=== PATIENT | female | born 1965 | race Caucasian/White ===

== ENCOUNTER 2024-11-27 09:51 | Outpatient (AMB) | payer BC, SELFPAY ==
--- NOTE | 2024-11-27 09:47 | A.OFFPC_ITS ---
Vital Signs 11/27/24 10:01 11/27/24 10:16 Height 5 ft 7.72 in Weight 253 lb BMI 38.8 BP 134/94 H 132/92 H Blood Pressure Location Lt brachial Lt brachial Position Sitting Sitting Respiration 14 Pulse 70 Pulse Source Pulse Oximeter Pulse Oximetry (%) 98 Oxygen Delivery Method Room Air Intake Visit Reasons: Est care Intake Note: New patient visit. Is supposed to be on Atorvastatin and Lisinopril, has been out for 6 months. [employer] Supervisor Required: No Allergies No Known Allergies Allergy (Verified 11/27/24 09:55) Tobacco use date assessed: 11/27/24 Dental Screening Dental Screen Date: 11/27/24 Did you have a dental visit in the last 12 months?: Yes Did you have a dental problem in the last 6 months where you did not have access to dental care?: No Was dental information given to patient?: Patient has dentist HPI HPI Comments History of Present Illness Details 59 year old female with a past medical h istory of hypertension, hyperlipidemia presenting to [facility]. CV: Was on atorvastatin and lisinopril but ran out. She has been monitoring her blood pressure at home. Readings 120s-130/70s-90. Denies chest pain, shortness of breath. She is frustated by inability to lose weight. She would consider GLP if covered. Mammo ordered ROS CONSTITUTIONAL: Denies weight loss, fever and chills. HEENT: Denies changes in vision and hearing. RESPIRATORY: Denies SOB and cough. CV: Denies palpitations and CP GI: Denies abdominal pain, nausea, vomiting and diarrhea. : Denies dysuria and urinary frequency. MSK: Denies new myalgia and joint pain. SKIN: Denies rash and pruritus. NEUROLOGICAL: Denies headache PSYCHIATRIC: Denies recent changes in mood. PHYSICAL EXAM: GENERAL: Alert and oriented x 3. NAD EYES: EOMI. Anicteric. HENT: Moist mucous membranes. No scleral icterus. No cervical lymphadenopathy. LUNGS: Clear to auscultation bilaterally. CARDIOVASCULAR: Regular rate and rhythm. No murmur. No JVD. ABDOMEN: Soft, non-tender +bs EXTREMITIES: No edema. Non-tender. SKIN: No rashes or lesions. Warm. NEUROLOGIC: No focal neurological deficits. CN II-XII grossly intact PSYCHIATRIC: Cooperative. Appropriate mood and affect [facility] Medical History Cataract, right eye Surgical History Hx of LASIK History of cataract surgery H/O section Family History Maternal Grandfather No problems noted. Maternal Aunt Cancer Father HTN (hypertension) Social History Housing: House Patient Tobacco Use Status: Current someday Tobacco user Years Smoked: 30 e-Cigarette/Vaping Use: Never Used Second Hand Smoke Exposure: No service: No Current occupational status: employed Current occupation: karate teacher Current occupational exposures/hazards: No Cognitive needs: No Hearing needs: No Vision needs: Yes (glasses) Physical exam (Primary Care) Vital Signs: Last Vital Signs Pulse 70 11/27/24 10:01 Resp 14 11/27/24 10:01 BP 132/92 H 11/27/24 10:16 Pulse Ox 98 11/27/24 10:01 Oxygen Delivery Method Room Air 11/27/24 10:01 BMI result Body Mass Index 38.8 Tobacco/Smoking Status: Tobacco use Status Tobacco use date assessed 11/27/24 11/27/24 10:03 Patient Tobacco Use Status Current someday Tobacco 11/27/24 10:03 e-Cigarette/Vaping Use Never Used 11/27/24 10:03 Coding Level of Care Code New Pt Level 4 (23425) Diagnoses Encounter to establish care Z76.89 Primary hypertension I10 Hypertension type: primary hypertension Pure hypercholesterolemia E78.00 Hyperlipidemia type: pure hypercholesterolemia Assessment & Plan Assessment & Plan (1) Encounter to establish care: Code(s): Z76.89 - Persons encountering health services in other specified circumstances Category: Medical Plan: 59 y/o to establish care. past medical, surgical, social, family history reviewed (2) Hypertension: Code(s): I10 - Essential (primary) hypertension Category: Medical Qualifiers: Hypertension type: primary hypertension Qualified Code(s): I10 - Essential (primary) hypertension Plan: controlled off medications. (3) Hyperlipidemia: Code(s): E78.5 - Hyperlipidemia, unspecified Category: Medical Qualifiers: Hyperlipidemia type: pure hypercholesterolemia Qualified Code(s): E78.00 - Pure hypercholesterolemia, unspecified Plan: Check lipids in 3 months Start GLP therapy if covered. Orders: Orders Complete Blood Count Auto Diff 3 Months Z13.0 - Encounter for screening for diseases of the blood and blood-forming organs and certain disorders involving the immune mechanism, E78.5 - Hyperlipidemia, unspecified, I10 - Essential (primary) hypertension, Z13.228 - Encounter for screening for other metabolic disorders Lipid Panel 3 Months Z13.0 - Encounter for screening for diseases of the blood and blood-forming organs and certain disorders involving the immune mechanism, E78.5 - Hyperlipidemia, unspecified, I10 - Essential (primary) hypertension, Z13.228 - Encounter for screening for other metabolic disorders TSH reflex Free T4 3 Months Z13.0 - Encounter for screening for diseases of the blood and blood-forming organs and certain disorders involving the immune mechanism, E78.5 - Hyperlipidemia, unspecified, I10 - Essential (primary) hypertension, Z13.228 - Encounter for screening for other metabolic disorders Comprehensive Met. Panel 3 Months Z13.0 - Encounter for screening for diseases of the blood and blood-forming organs and certain disorders involving the immune mechanism, E78.5 - Hyperlipidemia, unspecified, I10 - Essential (primary) hypertension, Z13.228 - Encounter for screening for other metabolic disorders Hemoglobin A1c 3 Months Z13.0 - Encounter for screening for diseases of the blood and blood-forming organs and certain disorders involving the immune mechanism, E78.5 - Hyperlipidemia, unspecified, I10 - Essential (primary) hypertension, Z13.228 - Encounter for screening for other metabolic disorders MM screening mammo BI 11/27/24 Z12.31 - Encounter for screening mammogram for malignant neoplasm of breast Medications: New Zepbound (tirzepatide (weight loss)) for 4 weeks 2.5 mg (0.5 mL) subcut QWEEK 2 mL 0RF NS I10 - Essential (primary) hypertension, E78.5 - Hyperlipidemia, unspecified, E66.9 - Obesity, unspecified
[2024-11-27 10:01] VITALS: BP 134/94; PULSE 70; RESP 14; O2SAT 98; BMI 38.8
[2024-11-27 10:16] VITALS: BP 132/92
== END 2024-11-27 10:33 | disposition home or self-care (01) ==
PROVIDERS: PCP Internal Medicine; Visit Provider Internal Medicine
DX: Z76.89 Persons encountering health services in other specified circumstances (principal); I10 Essential (primary) hypertension; E78.00 Pure hypercholesterolemia, unspecified

== ENCOUNTER 2025-07-16 15:44 | Outpatient (AMB) | payer BC, SELFPAY ==
--- NOTE | 2025-07-16 15:48 | A.OFFPC_ITS ---
Vital Signs 07/16/25 15:57 07/16/25 16:00 Height 5 ft 7.72 in Weight 253 lb 4 oz BMI 38.8 BP 118/90 H 120/92 H Blood Pressure Location Rt brachial Rt brachial Position Sitting Sitting Respiration 18 Pulse 76 Pulse Source Pulse Oximeter Temp 98.6 F Temp Source Oral Pulse Oximetry (%) 96 Oxygen Delivery Method Room Air Intake Visit Reasons: Pain in lower R leg Intake Note: pain in lower leg r Director Of Retail Marketing Required: No Allergies No Known Allergies Allergy (Verified 07/16/25 15:53) Tobacco use date assessed: 07/16/25 Dental Screening Dental Screen Date: 07/16/25 Did you have a dental visit in the last 12 months?: Yes Did you have a dental problem in the last 6 months where you did not have access to dental care?: No Was dental information given to patient?: Patient has dentist HPI HPI Comments History of Present Illness Details 59 year old female with a past medical h istory of hypertension, hyperlipidemia presenting for follow up Presenting for right leg pain. 6 months ago developed a wound over the right malleolus. She flew back and forth to [place] twice. During her trip was given a wound cream that improved but did not completely heal the opening. Not daraining now. Fell recently an got a smal wound on the right dominguez also slow healing. She has discomfort of the entire right lower leg. Calf is tender not more than the anterior leg. CV: Was on atorvastatin and lisinopril but ran out and did not continue. She has been monitoring her blood pressure at home. Readings 120s-130/70s-90. Denies chest pain, shortness of breath. She is frustated by inability to lose weight. She would consider GLP if covered. Mammo ordered previously ROS see HPI PHYSICAL EXAM: GENERAL: Alert and oriented x 3. NAD EYES: EOMI. Anicteric. HENT: Moist mucous membranes. No scleral icterus. No cervical lymphadenopathy. LUNGS: Clear to auscultation bilaterally. CARDIOVASCULAR: Regular rate and rhythm. No murmur. No JVD. ABDOMEN: Soft, non-tender +bs EXTREMITIES: No edema. Non-tender. +dp pulses SKIN: 2cm eschar of right dominguez, small shallow ulceration above thr right lateral malleoli with surround chronic stasis changes. Mild varicosities. Minimal erythema NEUROLOGIC: No focal neurological deficits. CN II-XII grossly intact PSYCHIATRIC: Cooperative. Appropriate mood and affect [facility] Medical History Cataract, right eye Surgical History Hx of LASIK History of cataract surgery H/O section Family History Maternal Grandfather No problems noted. Maternal Aunt Cancer Father HTN (hypertension) Social History (Updated 07/16/25 @ 15:54 by Darrell Cowan MA) Housing: House Alcohol intake: current Comment: occasionally Patient Tobacco Use Status: Current someday Tobacco user Years Smoked: 30 e-Cigarette/Vaping Use: Never Used Second Hand Smoke Exposure: No Use of substances other than those prescribed or required for medical reasons: No service: No Current occupational status: employed Current occupation: scientific director Current occupational exposures/hazards: No Cognitive needs: No Hearing needs: No Vision needs: Yes (glasses) Questionnaire PHQ-9 Over the last 2 weeks, how often have you been bothered by any of the following problems? 1. Little interest or pleasure in doing things: not at all 2. Feeling down, depressed, or hopeless: not at all 3. Trouble falling or staying asleep, or sleeping too much: not at all 4. Feeling tired or having little energy: several days 5. Poor appetite or overeating: not at all 6. Feeling bad about yourself - or that you are a failure or have let yourself or your family down: not at all 7. Trouble concentrating on things, such as reading the newspaper or watching television: not at all 8. Moving or speaking so slowly that other people could have noticed. Or the opposite - being so fidgety or restless that you have been moving around a lot more than usual: not at all 9. Thoughts that you would be better off or of hurting yourself in some way: not at all Total score: 1 Depression Screening Interpretation: Negative Depression Screening Done: Yes 91034 - PHQ-9 Billing: Yes Source: Developed by Drs. Lebron Swartz, Ramonita Mensah, Kwame Orta and colleagues, with an educational puma from [employer]. Thrive Questionnaire Date Thrive assessed: 11/27/24 I am a: Patient What is your living situation today?: I have a steady place to live Within the past 12 months, did the food you bought not last and you didn't have the money to get more?: Never true Within the past 12 months, did you worry whether your food would run out before you got money to buy more?: Never true Do you have trouble paying for medicines?: No Do you have trouble getting transportation to medical appointments?: No Do you have trouble paying your heating and electricity bill?: No Do you have trouble taking care of your child, family member or friend?: No Do you have trouble with day-to-day activities such as bathing, preparing meals, shopping, managing finances, etc.?: No Are you currently unemployed and looking for a job?: No Are you interested in more education?: No Please select the resources that you would like help with: None Currently or been in a relationship where the following occur: No concerns reported THRIVE Score: 0 AUDIT C Alcohol Use Questionnaire (AUDIT-C) 1. How often do you have a drink containing alcohol?: Monthly or less 2. How many drinks containing alcohol do you have on a typical day when you are drinking?: 1 or 2 (1 glass of wine) 3. How often do you have six or more drinks on one occasion?: Never Total Score: 1 PATRICIA-7 AMB Questionnaire PATRICIA-7 Date PATRICIA - 7 assessed: 07/16/25 Feeling nervous, anxious, or on edge: 0 = Not at all Not being able to stop or control worryin = Not at all Worrying too much about different things: 0 = Not at all Trouble relaxin = Not at all Being so restless that it is hard to sit still: 0 = Not at all Becoming easily annoyed or irritable: 0 = Not at all Feeling afraid as if something awful might happen: 0 = Not at all Total PATRICIA-7 score (0-4 normal; 5-9 mild; 10-14 moderate; 15-21 severe): 0 Source: Developed by Drs. Lebron Swartz, Ramonita Mensah, Kwame Orta and colleagues, with an educational puma from [employer]. PATRICIA-7 Assessment Billing PATRICIA-7 Assessment Tool: PATRICIA-7 Assessment 22927 Physical exam (Primary Care) Vital Signs: Last Vital Signs Temp 98.6 F 07/16/25 15:57 Pulse 76 07/16/25 15:57 Resp 18 07/16/25 15:57 BP 120/92 H 07/16/25 16:00 Pulse Ox 96 07/16/25 15:57 Oxygen Delivery Method Room Air 07/16/25 15:57 BMI result Body Mass Index 38.8 Tobacco/Smoking Status: Tobacco use Status Tobacco use date assessed 07/16/25 07/16/25 15:57 Patient Tobacco Use Status Current someday Tobacco 07/16/25 15:54 e-Cigarette/Vaping Use Never Used 07/16/25 15:54 PHQ-9: PHQ-9 Score PHQ-9: Total score 1 07/18/25 18:00 Depression Screening Interpretation: Negative Thrive Assessment: Date of Thrive Assessment Date Thrive assessed 11/27/24 07/16/25 15:49 Currently or been in a relationship where the following occur: No concerns reported Coding Level of Care Code Est Pt Level 4 (50923) Diagnoses Pain of right lower extremity M79.604 Laterality: right Non-healing ulcer of lower extremity, right, with unspecified severity L97.919 Laterality: right Non-pressure ulcer stage: unspecified non-pressure ulcer stage Additional Codes PATRICIA-7 Assessment Billing - PATRICIA-7 Assessment Tool: PATRICIA-7 Assessment 64928 ([id number]) PHQ-9 - 21214 - PHQ-9 Billing: Yes ([id number]) Assessment & Plan Assessment & Plan (1) Lower extremity pain: Code(s): M79.606 - Pain in leg, unspecified Category: Medical Qualifiers: Laterality: right Qualified Code(s): M79.604 - Pain in right leg (2) Non-healing ulcer of lower extremity: Code(s): L97.909 - Non-pressure chronic ulcer of unspecified part of unspecified lower leg with unspecified severity Category: Medical Qualifiers: Laterality: right Non-pressure ulcer stage: unspecified non-pressure ulcer stage Qualified Code(s): L97.919 - Non-pressure chronic ulcer of unspecified part of right lower leg with unspecified severity Plan 60 year old female presenting for right leg pain Non healing skin wound likely secondary to venous disease Right us to rule out DVT bilateral venous insufficiency ordered Refer to vascular Orders: Orders US venous insuf bilat 07/16/25 L97.909 - Non-pressure chronic ulcer of unspecified part of unspecified lower leg with unspecified severity, M79.606 - Pain in leg, unspecified US venous duplex LE RT 07/16/25 M79.606 - Pain in leg, unspecified Referrals Vascular Surgery Referral L97.909 - Non-pressure chronic ulcer of unspecified part of unspecified lower leg with unspecified severity, M79.606 - Pain in leg, unspecified
[2025-07-16 15:57] VITALS: BP 118/90; PULSE 76; RESP 18; TEMP 37; O2SAT 96; BMI 38.8
[2025-07-16 16:00] VITALS: BP 120/92
== END 2025-07-16 17:19 | disposition home or self-care (01) ==
LOC: HO.HMCFM 15:45
PROVIDERS: PCP Internal Medicine; Visit Provider Internal Medicine
DX: M79.604 Pain in right leg (principal); L97.919 Non-pressure chronic ulcer of unspecified part of right lower leg with unspecified severity

== ENCOUNTER → 2025-07-16 15:44 | Outpatient (BNVA) | payer BC, SELFPAY | PROVIDERS: PCP Internal Medicine; Visit Provider Internal Medicine | DX: M79.604 Pain in right leg (principal); L97.819 Non-pressure chronic ulcer of other part of right lower leg with unspecified severity; I10 Essential (primary) hypertension; Z79.899 Other long term (current) drug therapy; Z13.31 Encounter for screening for depression; Z13.39 Encounter for screening examination for other mental health and behavioral disorders | CPT/HCPCS: 96127 ==

== ENCOUNTER 2025-07-20 10:02 | Outpatient (REF) | payer BC, SELFPAY ==
--- NOTE | ~2025-07-20 | US_ITS ---
EXAMINATION: US TRIPLEX LOWER EXTREMITY, RIGHT CLINICAL INFORMATION: Pain, right lower extremity. COMPARISON: None available. TECHNIQUE: Color-flow triplex imaging with spectral analysis and compression Doppler were performed on the right lower extremity. FINDINGS: Respiratory variation, normal compression and augmented flow are demonstrated in the interrogated right common femoral vein, superficial femoral vein, profunda femoral vein, popliteal vein and posterior tibial venous segments. There is no Maya's cyst. US/US venous duplex LE RT IMPRESSION: No acute deep venous thrombosis interrogated veins, right lower extremity. Negative for DVT. Electronically signed by: Corbin Laughlin MD 07/20/2025 10:48 AM EDT
== END 2025-07-20 10:03 | disposition home or self-care (01) ==
LOC: HO.US 10:02
PROVIDERS: PCP Internal Medicine; Visit Provider Internal Medicine
DX: M79.604 Pain in right leg (principal)
CPT/HCPCS: 93971

== ENCOUNTER → 2025-07-20 10:10 | Outpatient (BNV) | payer BC, SELFPAY | PROVIDERS: PCP Internal Medicine; Visit Provider Radiology Diagnostic Radiology | DX: M79.604 Pain in right leg (principal) | CPT/HCPCS: 93971 ==

== ENCOUNTER 2025-07-27 13:17 | Outpatient (REF) | payer BC, SELFPAY ==
[2025-07-27 18:09] LABS: MANUAL DIFF FLAG NO
[2025-07-27 18:12] LABS: Hematocrit 39.1 % (37.0-47.0); Hemoglobin 12.8 g/dl (12.0-16.0); Imm Gran Abs Auto 0.01 X10*3/uL (0.00-0.03); Imm Gran Pct Auto 0.1 % (0.0-0.4); Lymphocytes Absolute Auto 2.8 X10*3/uL (1.2-4.9); Mean Corpuscular HGB Conc 32.7 g/dl (31.0-35.0); Mean Corpuscular Hemoglobin 28.5 pg (27.0-33.0); Mean Corpuscular Volume 87.1 fL (80.0-98.0); NRBC Abs Auto 0.000 X10*3/uL (0.0-0.012); NRBC Pct Auto 0.0 /100WBC (0.0-0.2); Platelet Count 346 X10*3/uL (160-400); Red Blood Count 4.49 X10*6/uL (4.20-5.50); White Blood Count 8.5 X10*3/uL (4.8-10.8)
[2025-07-27 18:37] LABS: Alanine Aminotransferase 23 U/L (0-31); Albumin Level 4.5 g/dL (3.5-5.0); Alkaline Phosphatase 76 U/L (39-117); Anion Gap 12 (12-20); Aspartate Amino Transferase 25 U/L (5-31); Blood Urea Nitrogen 16 mg/dL (9-16); Calcium 8.7 mg/dL (8.4-10.2); Carbon Dioxide 24 mmol/L (22-29); Chloride 106 mmol/L (96-108); Cholesterol 132 mg/dL (<200); Estimated Glomerular Filt Rate > 60; HDL Cholesterol 42 mg/dL (>40); Potassium 3.8 mmol/L (3.3-5.1); Sodium 138 mmol/L (135-145); Total Protein 7.3 g/dL (6.5-8.0); Triglycerides 135 mg/dL (<150)
== END 2025-07-27 13:18 | disposition home or self-care (01) ==
LOC: HO.WFDLDS 13:17
PROVIDERS: Visit Provider Internal Medicine
DX: Z13.0 Encounter for screening for diseases of the blood and blood-forming organs and certain disorders involving the immune mechanism (principal); Z13.228 Encounter for screening for other metabolic disorders; E78.5 Hyperlipidemia, unspecified; I10 Essential (primary) hypertension; Z13.1 Encounter for screening for diabetes mellitus
CPT/HCPCS: 36415; 80053; 80061; 83036; 84443; 85025

== ENCOUNTER 2025-08-13 13:29 | Outpatient (REF) | payer BC, SELFPAY ==
--- NOTE | ~2025-08-13 | US_ITS ---
EXAMINATION: US LOWER EXTREMITY VENOUS (REFLUX EXAM), BILATERAL CLINICAL INFORMATION: M 79. 606 COMPARISON: None. TECHNIQUE: Color flow triplex imaging and compression Doppler was performed to evaluate both the deep and the superficial systems bilaterally. To evaluate the superficial system, the examination was performed in the upright position. Color-flow Doppler ultrasound and compression ultrasound were utilized. In addition, maneuvers were utilized to demonstrate reflux. FINDINGS: 1. DEEP VENOUS ULTRASOUND OF THE RIGHT LOWER EXTREMITY: Common Femoral Vein: Compressible, normal respiratory variation and augmented flow. Femoral Vein: Compressible, normal color flow and augmentation. Popliteal Vein: Compressible, normal augmentation. Deep Reflux: There is no evidence of reflux in the deep system in either the common femoral vein, superficial femoral or the popliteal vein. There is no evidence of a Maya's cyst. 2. SUPERFICIAL ULTRASOUND WITH DOPPLER OF RIGHT LOWER EXTREMITY: GREAT SAPHENOUS VEIN: Saphenofemoral Junction: 0.6 cm; Reflux: 1892 ms Proximal Thigh: 0.9 cm; Reflux: 2300 ms Mid Thigh: 0.9 cm; Reflux: 2076 ms Distal Thigh: 0.8 cm; Reflux: 2556 ms At Knee: 0.8 cm; Reflux: 2080 ms Proximal Calf: 0.6 cm; Reflux: 860 ms Mid Calf: 0.3 cm; Reflux: 0 ms Distal Calf: 0.3 cm; Reflux: 0 ms DUPLICATED MEDIAL GREAT SAPHENOUS VEIN: Diameter: 0.5-0.3 cm. Reflux: NA DUPLICATED LATERAL GREAT SAPHENOUS VEIN: Diameter: 0.3 cm. Reflux: NA SMALL SAPHENOUS VEIN: Saphenopopliteal Junction: 0.4 cm; Reflux: 0 ms Proximal: 0.5 cm; Reflux: 0 ms Distal: 0.4 cm; Reflux: 0 ms VEIN OF GIACOMINI: Size: NA Reflux: NA PERFORATORS: Location: Small saphenous vein distal segment and great saphenous vein proximal calf. Size: 0.3 and 0.2 cm. Reflux: NA VARICOSITIES: Location: Small saphenous vein mid segment. Great saphenous vein at the knee, proximal and distal calf. Size: 0.4-0.5 cm. Reflux: 1352 ms in the midsegment, small saphenous vein. 2052 ms at the knee. 3. DEEP VENOUS ULTRASOUND OF THE LEFT LOWER EXTREMITY: Common Femoral Vein: Compressible, normal respiratory variation and augmented flow. Femoral Vein: Compressible, normal color flow and augmentation. Popliteal Vein: Compressible, normal augmentation. Deep Reflux: 1696 ms in the popliteal vein. There is no evidence of a Maya's cyst. 4. SUPERFICIAL ULTRASOUND WITH DOPPLER OF LEFT LOWER EXTREMITY: GREAT SAPHENOUS VEIN: Saphenofemoral Junction: 0.9 cm; Reflux: 0 ms Proximal Thigh: 0.5 cm; Reflux: 0 ms Mid Thigh: 0.6 cm; Reflux: 2160 ms Distal Thigh: 0.8 cm; Reflux: 2316 ms At Knee: 0.7 cm; Reflux: 1580 ms Proximal Calf: 0.3 cm; Reflux: 0 ms Mid Calf: 0.4 cm; Reflux: 0 ms Distal Calf: 0.4 cm; Reflux: 0 ms DUPLICATED MEDIAL GREAT SAPHENOUS VEIN: Diameter: 0.5 cm. Reflux: NA DUPLICATED LATERAL GREAT SAPHENOUS VEIN: Diameter: 0.3 cm. Reflux: NA SMALL SAPHENOUS VEIN: Saphenopopliteal Junction: 0.3 cm; Reflux: 0 ms Proximal: 0.3 cm; Reflux: 0 ms Distal: 0.3 cm; Reflux: 0 ms VEIN OF GIACOMINI: Size: NA Reflux: NA PERFORATORS: Location: Small saphenous vein, mid segment. Size: 0.3, 0.2 x 0.4 cm. Reflux: 2240 ms and 2308 ms. VARICOSITIES: Location: Stovall saphenous vein, proximal to mid calf. Size: 0.4 cm. Reflux: 844 ms, proximal calf. US/US venous insuf bilat IMPRESSION: Right: Venous insufficiency, great saphenous vein from the superficial femoral junction to the proximal calf. Varices with reflux in the mid segment small saphenous vein and at the knee of the great saphenous vein. Perforators without reflux. Left: Venous insufficiency, great saphenous vein from the mid thigh to the knee. The venous reflux in the popliteal vein. Varices with reflux in the proximal calf. Perforators with reflux. Electronically signed by: Corbin Laughlin MD 08/13/2025 02:29 PM ROEL
== END 2025-08-13 13:30 | disposition home or self-care (01) ==
LOC: HO.US 13:29
PROVIDERS: PCP Internal Medicine; Visit Provider Internal Medicine
DX: M79.604 Pain in right leg (principal); M79.605 Pain in left leg; L97.909 Non-pressure chronic ulcer of unspecified part of unspecified lower leg with unspecified severity
CPT/HCPCS: 93970

== ENCOUNTER → 2025-08-13 13:31 | Outpatient (BNV) | payer BC, SELFPAY | PROVIDERS: PCP Internal Medicine; Visit Provider Radiology Diagnostic Radiology | DX: I87.2 Venous insufficiency (chronic) (peripheral) (principal) | CPT/HCPCS: 93970 ==